=== PATIENT | male | born 1955 | race Caucasian/White ===

== ENCOUNTER → 2017-06-11 | Outpatient (REF) | payer SELFPAY ==
[2017-06-11 18:20] LABS: APPEARANCE, URINE CLEAR (CLEAR); BACTERIA, URINE AUTO NEGATIVE (NEGATIVE); BILIRUBIN, URINE AUTO NEGATIVE (NEGATIVE); BLOOD, URINE BLOOD NEGATIVE (NEGATIVE); COLOR, URINE STRAW (YELLOW); GLUCOSE, URINE (UA) AUTO 3+ mg/dL (NEGATIVE); KETONE, URINE AUTO TRACE mg/dL (NEGATIVE); LEUKOCYTE ESTERASE, URINE AUTO NEGATIVE (NEGATIVE); NITRITE, URINE AUTO NEGATIVE (NEGATIVE); PROTEIN, URINE AUTO NEGATIVE (NEGATIVE); RBC, URINE AUTO 0 /HPF (0-3); SPECIFIC GRAVITY URINE AUTO 1.032 (1.002-1.035); SQUAMOUS EPITHELIAL CELL UR AU 0 /HPF (0-6); UROBILINOGEN, URINE AUTO 0.2 mg/dL (0.0-2.0); WBC, URINE AUTO 0 /HPF (0-3)
== END ==
LOC: M LAB REF 17:37
DX: N39.0 Urinary tract infection, site not specified (principal)
CPT/HCPCS: 81001

== ENCOUNTER → 2018-02-11 | Outpatient (REF) | payer SELFPAY ==
[2018-02-12 09:06] LABS: HEPATITIS C VIRUS ABY INDEX < 0.0 INDEX (<0.8)
== END ==
LOC: M LAB REF 16:38
DX: R74.0 Nonspecific elevation of levels of transaminase and lactic acid dehydrogenase [LDH] (principal)

== ENCOUNTER → 2018-06-24 | Outpatient (REF) | payer SELFPAY ==
[2018-06-26 08:06] LABS: LDL DIRECT 101 mg/dL (0-99)
== END ==
LOC: M LAB REF 17:40
PROVIDERS: ATTEND Nurse Practitioner Adult Health
DX: E11.65 Type 2 diabetes mellitus with hyperglycemia (principal)

== ENCOUNTER → 2019-01-27 | Outpatient (REF) | payer SELFPAY ==
[2019-01-29 08:06] LABS: LDL DIRECT 65 mg/dL (0-99)
== END ==
LOC: M LAB REF 18:55
PROVIDERS: ATTEND Nurse Practitioner Adult Health
DX: E78.1 Pure hyperglyceridemia (principal)

== ENCOUNTER → 2024-04-08 | Outpatient (CLI) | payer OTHER ==
[2024-04-09 15:27] LABS: PSA FREE 2.3 ng/mL; PSA TOTAL 5.8 ng/mL (< OR = 4.0)
== END ==
LOC: M PLALAB 10:19
PROVIDERS: ATTEND Nurse Practitioner Family
DX: R97.20 Elevated prostate specific antigen [PSA] (principal)

== ENCOUNTER → 2024-08-07 | Outpatient (REF) | payer OTHER, MEDICARE | LOC: M SMT 12:34 | PROVIDERS: ATTEND Urology | DX: R97.20 Elevated prostate specific antigen [PSA] (principal) ==

== ENCOUNTER → 2025-01-25 | Outpatient (CLI) | payer MEDICARE | LOC: M PLALAB 16:21 | PROVIDERS: ATTEND Urology | DX: R97.20 Elevated prostate specific antigen [PSA] (principal) ==

== ENCOUNTER → 2025-02-08 | Outpatient (CLI) | payer MEDICARE | LOC: M RAD 07:36 | PROVIDERS: ATTEND Nurse Practitioner Adult Health | DX: R94.5 Abnormal results of liver function studies (principal) ==

== ENCOUNTER → 2025-04-20 | Outpatient (CLI) | payer MEDICARE ==
[2025-04-20 19:10] LABS: ALT/SGPT 165 U/L (7.0-40); AST/SGOT 104 U/L (<34); IRON (FE) 87 UG/DL (65-175)
[2025-04-20 19:11] LABS: PERCENT SATURATION 22.2 % (19.7-50.0)
[2025-04-20 19:20] LABS: HEPATITIS B SURFACE ANTIBODY NEGATIVE (POSITIVE)
[2025-04-20 19:52] LABS: HEPATITIS C VIRUS ABY INDEX 0.02 INDEX (<0.8)
[2025-04-22 18:12] LABS: T P ELECTROPHORESIS SO 7.0 g/dL (6.1-8.1)
[2025-04-23 11:34] LABS: ALPHA 1 ANTITRYPSIN 122 mg/dL (83-199)
[2025-04-23 13:56] LABS: HEPATITIS A IgG TOTAL REACTIVE (NON-REACTIVE)
== END ==
LOC: M PLALAB 15:09
DX: K76.0 Fatty (change of) liver, not elsewhere classified (principal); R79.89 Other specified abnormal findings of blood chemistry; Z11.59 Encounter for screening for other viral diseases; Z79.899 Other long term (current) drug therapy